=== PATIENT | female | born 1975 | race Caucasian/White ===

== ENCOUNTER 2023-11-25 14:28 | Outpatient (CLI) | payer OTHER, SELFPAY | END 2023-11-25 14:29 | disposition home or self-care (01) | PROVIDERS: PCP Emergency Medicine; Visit Provider Emergency Medicine | DX: R10.32 Left lower quadrant pain (principal) | CPT/HCPCS: 86140; 87086 ==

== ENCOUNTER 2023-12-02 17:56 | Outpatient (CLI) | payer OTHER, SELFPAY | END 2023-12-02 17:57 | disposition home or self-care (01) | PROVIDERS: Visit Provider Emergency Medicine | DX: I10 Essential (primary) hypertension (principal); E55.9 Vitamin D deficiency, unspecified | CPT/HCPCS: 80048; 82306; 87086 ==

== ENCOUNTER 2024-03-23 14:42 | Outpatient (CLI) | payer OTHER, SELFPAY ==
--- NOTE | 2024-03-23 15:00 | CRLHL7_ITS ---
For Patients: As a result of the Century Cures Act, medical imaging exams and procedure reports are released immediately into your electronic medical record. You may view this report before your referring provider. If you have questions, please contact your health care provider. BILATERAL SCREENING MAMMOGRAM WITH COMPUTER-AIDED DETECTION AND TOMOSYNTHESIS TECHNIQUE: CC and MLO views were obtained. These mammographic images have been obtained using full-field digital technique. These mammographic images were interpreted with the benefit of computer-aided detection. Breast tomosynthesis was used in this interpretation. COMPARISON FILM: 03/16/21, 03/14/20, 03/10/19 FINDINGS: The breasts are heterogeneously dense, which may obscure small masses. IMPRESSION: There is no radiographic evidence for malignancy. ASSESSMENT: BI-RADS Category 2: Benign RECOMMENDATION: Routine screening mammogram in 1 year. A lay language report of this examination will be provided to the patient. WESTON SALAS M.D. Diagnostic Radiologist [email or web address] Transcribed: 1:[address]/Dictated by: Weston Salas MD @ 03/29/2024 11:48:00 AM (Electronically Signed)
== END 2024-03-23 14:43 | disposition home or self-care (01) ==
LOC: MAMMO 14:43
PROVIDERS: Visit Provider Emergency Medicine
DX: Z12.31 Encounter for screening mammogram for malignant neoplasm of breast (principal); R92.333 Mammographic heterogeneous density, bilateral breasts
CPT/HCPCS: 77063; 77067

== ENCOUNTER 2024-12-15 10:04 | Outpatient (CLI) | payer OTHER, BC, SELFPAY | END 2024-12-15 10:05 | disposition home or self-care (01) | LOC: NFLDREF 12-16 17:31 | PROVIDERS: PCP Emergency Medicine; Referring Provider Emergency Medicine; Visit Provider Emergency Medicine | DX: Z00.00 Encounter for general adult medical examination without abnormal findings (principal); I10 Essential (primary) hypertension; M25.472 Effusion, left ankle; E55.9 Vitamin D deficiency, unspecified | CPT/HCPCS: 80048; 80061; 82306 ==

== ENCOUNTER 2025-04-22 14:15 | Outpatient (CLI) | payer OTHER, BC, SELFPAY ==
--- NOTE | 2025-04-22 14:40 | CRLHL7_ITS ---
For Patients: As a result of the Cures Act, medical imaging exams and procedure reports are released immediately into your electronic medical record. You may view this report before your referring provider. If you have questions, please contact your health care provider. BILATERAL DIGITAL SCREENING MAMMOGRAM WITH COMPUTER-AIDED DETECTION AND TOMOSYNTHESIS CLINICAL HISTORY: Routine screening exam. COMPARISON: 03/23/2024, 03/16/2021, 03/14/2020. TECHNIQUE: Digital mammogram in CC and MLO projections including computer-aided detection (CAD). Tomosynthesis was used in this interpretation. BREAST COMPOSITION: The breasts are heterogeneously dense, which may obscure small masses. FINDINGS: RIGHT Breast: Nodular density in the medial RIGHT breast without architectural distortion, probable cyst. LEFT Breast: No suspicious findings. Benign cysts. IMPRESSION: RIGHT breast asymmetry/mass. RECOMMENDATIONS: Additional mammographic views of the RIGHT breast including 3D spot-compression CC/MLO and 3D true lateral. RIGHT breast ultrasound may also be required. The [facility] will contact the patient. A lay language report of this examination will be provided to the patient. BI-RADS Category 0: Incomplete: Need Additional Imaging Evaluation Dictated by Weston Pina MD @ 04/25/2025 10:41:06 AM [email or web address]/[email or web address] DW/Dictated by: Weston Pina MD @ 04/25/2025 10:41:00 AM (Electronically Signed)
== END 2025-04-22 14:16 | disposition home or self-care (01) ==
PROVIDERS: PCP Physician Assistant Medical; Visit Provider Physician Assistant Medical
DX: Z12.31 Encounter for screening mammogram for malignant neoplasm of breast (principal); N63.10 Unspecified lump in the right breast, unspecified quadrant
CPT/HCPCS: 77063; 77067

== ENCOUNTER 2025-04-28 10:27 | Outpatient (CLI) | payer OTHER, BC, SELFPAY ==
--- NOTE | 2025-04-28 10:45 | CRLHL7_ITS ---
For Patients: As a result of the Cures Act, medical imaging exams and procedure reports are released immediately into your electronic medical record. You may view this report before your referring provider. If you have questions, please contact your health care provider. DIGITAL DIAGNOSTIC RIGHT MAMMOGRAM USING TOMOSYNTHESIS RIGHT BREAST ULTRASOUND CLINICAL HISTORY: RIGHT breast mass/asymmetry. COMPARISON: 04/22/2025, 03/23/2024, 03/16/2021. TECHNIQUE: Digital RIGHT mammogram in three projections. Tomosynthesis was used in this interpretation. Real-time ultrasound imaging of RIGHT breast with imaging documentation. BREAST COMPOSITION: The breast is heterogeneously dense, which may obscure small masses. FINDINGS: Additional mammogram images RIGHT breast submitted. Persistent nodular density is noted without architectural distortion. No suspicious calcifications. Targeted RIGHT breast ultrasound performed. At 2 o`clock 6 cm from the nipple there is a simple circumscribed anechoic cyst which measures 1.4 x 2.0 x 2.1 cm. IMPRESSION: Simple cyst RIGHT breast measures 1.4 x 2.0 x 2.1 cm. No evidence of malignancy. RECOMMENDATIONS: Routine screening mammography. A lay language report of this examination will be provided to the patient. BI-RADS Category 2: Benign Dictated by Weston Pina MD @ 04/28/2025 11:27:30 AM jj/Dictated by: Weston Pina MD @ 04/28/2025 11:27:00 AM (Electronically Signed)
--- NOTE | 2025-04-28 11:15 | CRLHL7_ITS ---
For Patients: As a result of the Cures Act, medical imaging exams and procedure reports are released immediately into your electronic medical record. You may view this report before your referring provider. If you have questions, please contact your health care provider. SEE DIGITAL DIAGNOSTIC RIGHT MAMMOGRAM PERFORMED SAME DAY [email or web address] goncalves/Dictated by: Weston Pina MD @ 04/28/2025 11:22:00 AM (Electronically Signed)
== END 2025-04-28 10:28 | disposition home or self-care (01) ==
LOC: MAMMO 10:28
PROVIDERS: PCP Physician Assistant Medical; Visit Provider Physician Assistant Medical
DX: N63.10 Unspecified lump in the right breast, unspecified quadrant (principal); N60.01 Solitary cyst of right breast; R92.8 Other abnormal and inconclusive findings on diagnostic imaging of breast
CPT/HCPCS: 76642; 77065; G0279